=== PATIENT | male | born 1975 | race Caucasian/White ===

== ENCOUNTER 2017-05-07 15:30 | Emergency (ER) | payer OTHER ==
[~2017-05-07] VITALS: Ht 177.8 cm; Wt 108.7 kg
[2017-05-07 16:35] LABS: BASOPHIL (%) 0.8 % (0-1); BASOPHIL COUNT 0.1 K/uL (0-0.1); EOSINOPHIL (%) 2.8 % (0-5); EOSINOPHIL COUNT 0.2 K/uL (0-0.3); HEMATOCRIT 42.3 % (38.0-50.0); HEMOGLOBIN 14.5 G/DL (12.5-16.6); IMMATURE GRANULOCYTE (%) 0.1 % (0.0-0.7); LYMPHOCYTE (%) 28.4 % (15-42); LYMPHOCYTE COUNT 2.2 K/uL (1.0-2.8); MCH 29.5 PG (29.0-34.0); MCHC 34.3 G/DL (30.0-36.0); MCV 86.2 FL (86-99); MONOCYTE (%) 11.4 % (3-12); MONOCYTE COUNT 0.9 K/uL (0-0.8); NEUTROPHIL (%) 56.5 % (45-76); NEUTROPHIL COUNT 4.4 K/uL (1.8-6.4); PLATELET COUNT 266 K/uL (156-360); RBC DIS.WIDTH-CV 12.2 % (11.8-14.6); RBC DIS.WIDTH-SD 38.5 % (39-53); RED BLOOD COUNT 4.91 M/uL (4.00-5.50); WHITE BLOOD COUNT 7.8 K/uL (4.1-10.2)
[2017-05-07 16:43] LABS: CHLORIDE 108 mEq/L (99-109); POTASSIUM 3.9 mEq/L (3.7-5.4); SODIUM 142 mEq/L (136-147)
[2017-05-07 16:44] LABS: GLUCOSE 95 mg/dL (70-99)
[2017-05-07 16:48] LABS: GFR ESTIMATE (CALCULATED) > 59 mL/min/ (58.99-99999)
[2017-05-07 16:49] LABS: UREA NITROGEN (BUN) 18 mg/dL (9-23)
[2017-05-07 17:04] LABS: TROP-I INTERPRETATION NEGATIVE; TROPONIN-I < 0.01 ng/mL (0.0-0.30)
[2017-05-07 19:40] LABS: TROP-I INTERPRETATION NEGATIVE; TROPONIN-I < 0.01 ng/mL (0.0-0.30)
[2017-05-07 20:03] VITALS: BP 139/93
== END 2017-05-07 20:05 | disposition home or self-care (01) ==
LOC: EME 15:30
PROVIDERS: Physician Assistant
DX: R07.9 Chest pain, unspecified (principal); R51 Headache; M54.2 Cervicalgia; K21.9 Gastro-esophageal reflux disease without esophagitis
CPT/HCPCS: 70496; 70498; 71046; 80048; 84484; 85025; 93005; 99281; 99284